=== PATIENT | female | born 1935 | race African-American/Black ===

== ENCOUNTER 2021-12-14 10:31 | Emergency (ER) | payer OTHER ==
[~2021-12-14] VITALS: Ht 165.1 cm; Wt 70.0 kg
[2021-12-14] MEDS ORDERED: ONDANSETRON HCL 4MG/2ML INJ IV STA (10:39)
[2021-12-14] MEDS ORDERED: MORPHINE SULFATE 4 MG/ML CPJ (NOT FOR IM USE) IV STA (10:39)
[2021-12-14] MEDS ORDERED: SODIUM CHLORIDE 0.9% 1,000 ML IV ONE (10:45)
[2021-12-14 11:27] LABS: BASOPHILS % 0.4 % (0.0-2.0); EOSINOPHILS % 1.2 % (0.0-5.0); HEMATOCRIT. 34.2 % (36.0-48.0); HEMOGLOBIN. 10.7 g/dL (12.0-16.0); MEAN CORPUSCULAR VOLUME 96.2 fL (81.0-99.0); NEUTROPHILS % 74.4 % (40.0-76.0); PLATELET 340 x1000/uL (130-400); RED BLOOD CELL COUNT 3.55 mill/uL (4.2-5.4); RED CELL DISTRIBUTION WIDTH 19.1 % (11.6-14.6)
[2021-12-14 11:35] LABS: CHLORIDE 104 mEq/L (98-107)
[2021-12-14] MEDS ORDERED: IOHEXOL-300 100 ML BOTTLE ONE (13:48)
[2021-12-14 22:09] VITALS: BP 130/63
[2021-12-14] MEDS ORDERED: ACETAMINOPHEN 325MG TABLET PO ONE (22:30)
== END 2021-12-14 22:30 | disposition short-term general hospital (02) ==
LOC: ER 10:31
DX: R10.9 Unspecified abdominal pain (principal); R11.2 Nausea with vomiting, unspecified; I50.9 Heart failure, unspecified; J44.9 Chronic obstructive pulmonary disease, unspecified; Z20.822 Contact with and (suspected) exposure to COVID-19
CPT/HCPCS: 36415; 74177; 80053; 83690; 85025; 87426; 93005; 96361; 96374; 96375; 99285; J2270; J2405; J7030; Q9967

== ENCOUNTER → 2022-04-02 | Emergency (ER) | payer OTHER ==
[~2022-04-02] VITALS: Ht 172.7 cm; Wt 82.0 kg
[~2022-04-02] MED LIST: ACETAMINOPHEN 325MG TABLET PO ONE; ACETAMINOPHEN 325MG TABLET PO SCH; ALBUTEROL 6.7GM HFA INHALER ORI SCH; BISA-81 MT; POLY17PO3 MT; POLYETHYLENE GLYCOL 3350 (17GM) 1 DOSE PACK PO SCH; [UNRECOGNIZED DRUG - CODE] RC
[2022-04-02 15:59] VITALS: BP 129/75
[2022-04-02 16:43] LABS: BASOPHILS % 0.4 % (0.0-2.0); EOSINOPHILS % 1.2 % (0.0-5.0); HEMATOCRIT. 32.8 % (36.0-48.0); HEMOGLOBIN. 10.4 g/dL (12.0-16.0); LYMPHOCYTES % 23.2 % (20.0-50.0); MEAN CORPUSCULAR VOLUME 98.1 fL (81.0-99.0); MEAN PLATELET VOLUME 7.2 fl (7.4-10.4); NEUTROPHILS % 65.2 % (40.0-76.0); PLATELET 339 x1000/uL (130-400); RED BLOOD CELL COUNT 3.34 mill/uL (4.2-5.4); RED CELL DISTRIBUTION WIDTH 14.4 % (11.6-14.6)
[2022-04-02 17:08] LABS: CHLORIDE 106 mEq/L (98-107)
== END | disposition home or self-care (01) ==
LOC: ER 15:51
DX: K59.00 Constipation, unspecified (principal); I11.0 Hypertensive heart disease with heart failure; I50.9 Heart failure, unspecified; J44.9 Chronic obstructive pulmonary disease, unspecified; Z98.890 Other specified postprocedural states
CPT/HCPCS: 36415; 74176; 80053; 83605; 84484; 85025; 93005; 94640; 99285